=== PATIENT | male | born 1995 | race Caucasian/White ===

== ENCOUNTER 2021-01-14 14:39 | Outpatient (REF) | payer OTHER, SELFPAY ==
--- NOTE | ~2021-01-14 | US_ITS ---
EXAMINATION: US SCROTUM CLINICAL INFORMATION: Epididymitis. COMPARISON: None TECHNIQUE: A sonogram of the scrotum was performed assessing kirby-scale appearance and color Doppler flow. Spectral Doppler analysis of the arterial and venous flow were performed in the testes bilaterally. FINDINGS: RIGHT: Right testicle measures 3.9 x 1.8 x 2.6 cm, volume 9.5 mL. No focal testicular parenchymal lesions are visualized. Spectral Doppler analysis of the arterial and venous flow is normal in the right testis. Right epididymal head is normal in size. No right hydrocele or varicocele is seen. Right epididymal Doppler flow is normal. LEFT: Left testicle measures 3.8 x 1.8 x 2.4 cm, volume 2.6 mL. No focal testicular parenchymal lesions are visualized. Spectral Doppler analysis of the arterial and venous flow is normal in the left testis. Left epididymal head is normal in size. No left hydrocele or varicocele is seen. Left epididymal Doppler flow is normal. US/US scrotum IMPRESSION: Unremarkable study. No significant abnormality demonstrated by ultrasound.
== END 2021-01-14 14:40 | disposition home or self-care (01) ==
LOC: HO.HMGCX 14:39
PROVIDERS: PCP Nurse Practitioner Family; Visit Provider Hospitalist
DX: N45.1 Epididymitis (principal)
CPT/HCPCS: 76870

== ENCOUNTER 2021-06-21 09:28 | Outpatient (REF) | payer OTHER, SELFPAY ==
[2021-06-21 12:19] LABS: Alanine Aminotransferase 16 U/L (0-40); Albumin Level 4.7 g/dL (3.5-5.0); Alkaline Phosphatase 55 U/L (39-117); Anion Gap 10 (12-20); Aspartate Amino Transferase 15 U/L (5-37); Bilirubin Total 0.6 mg/dL (0.0-1.0); Blood Urea Nitrogen 15 mg/dL (9-16); Calcium 9.3 mg/dL (8.4-10.2); Carbon Dioxide 26 mmol/L (22-29); Chloride 106 mmol/L (96-108); Cholesterol 144 mg/dL; Estimated Glomerular Filt Rate > 60; Glucose Fasting 100 mg/dL (60-99); HDL Cholesterol 54 mg/dL; LDL Cholesterol Calculated 84 mg/dl; Potassium 4.3 mmol/L (3.3-5.1); Sodium 138 mmol/L (135-145); Total Protein 7.2 g/dL (6.5-8.0); Triglycerides 34 mg/dL
[2021-06-21 12:41] LABS: TSH reflex Free T4 0.63 uIU/mL (0.32-4.0)
[2021-06-21 14:02] LABS: Appearance Urine CLEAR; Color Urine STRAW; Glucose Urine UA NEG (NEG); Leukocyte Esterase Urine NEG (NEG); Nitrite Urine NEG (NEG); Urine Blood NEG (NEG); Urine Ketones NEG (NEG); Urine Protein NEG (NEG-TRACE)
== END 2021-06-21 09:29 | disposition home or self-care (01) ==
LOC: HO.HMGCLDS 09:28
PROVIDERS: PCP Nurse Practitioner Family; Visit Provider Nurse Practitioner Family
DX: Z00.00 Encounter for general adult medical examination without abnormal findings (principal); Z13.29 Encounter for screening for other suspected endocrine disorder; Z13.220 Encounter for screening for lipoid disorders
CPT/HCPCS: 36415; 80053; 80061; 81003; 84443

== ENCOUNTER 2022-11-20 09:28 | Outpatient (REF) | payer OTHER, SELFPAY ==
--- NOTE | ~2022-11-20 | XR_ITS ---
EXAMINATION: XR ANKLE, LEFT CLINICAL INFORMATION: Pain in the left ankle COMPARISON: None TECHNIQUE: AP, lateral, and mortise views of the left ankle. FINDINGS: The bones and soft tissues are normal. No fracture. Alignment is anatomic. Joint spaces are maintained. No joint effusion. XR/XR ankle LT 2V IMPRESSION: No evidence for acute process
== END 2022-11-20 09:29 | disposition home or self-care (01) ==
LOC: HO.HMGCX 09:28
PROVIDERS: PCP Nurse Practitioner Family; Visit Provider Nurse Practitioner Family
DX: M25.572 Pain in left ankle and joints of left foot (principal)
CPT/HCPCS: 73600

== ENCOUNTER → 2022-12-04 08:54 | Outpatient (BNVA) | payer OTHER, SELFPAY | PROVIDERS: PCP Nurse Practitioner Family; Visit Provider Physician Assistant | DX: Z13.89 Encounter for screening for other disorder (principal) ==

== ENCOUNTER 2023-01-22 11:00 | Outpatient (RCR) | payer OTHER, SELFPAY ==
--- NOTE | 2022-12-22 10:01 | MHC.PT.EP ---
[facility] [place] Office [place] Office [place] Office [address] Myesha Vargas [address] [phone] F: [phone] F: [phone] F: [phone] F: [phone] Physical Therapy Plan of Care Date of Evaluation: Date of Surgery: Diagnosis: pes planus Assessment: 27 y/o male referred to PT with pes planus. He has had L ankle pain for one month of insidious onset resulting in pain with walking, running, jumping which are things he likes to do with his dog. He had an air cast for 2 weeks and now wears a night splint. S/s consistent with achilles tendinopathy secondary to increased pain to palpation midinsertion of achilles tendon, decreased B ankle ROM, decreased ankle/glut strength, decreased toe mobility, B bunions and impaired gait pattern. Recommend PT 1x/every other week for 4 visits (pt has high co-pay). Frequency and Duration: The patient will be seen 1x/every other week for 4 visits Short Term Goals: 4 weeks Compliant with HEP I with self taping Report decrease in pain by 50% with functional activities (pain range 1-8/10) Production Line Technician Goals: 8 weeks I with HEP and self management Improve ankle strength to 5/5 to facilitate walking Pt will be able to play with his dog (jump, jog) with pain < 3/10 Treatment Plan: Modalities to reduce pain, spasms and effusion. Manual therapy to restore motion and function. Therapeutic exercise to improve strength and flexibility. Neuromuscular re-education for posture and balance. Therapeutic activities to return to functional activities of daily living. Electronically signed by: Kate Proctor PT Please sign and return to therapist. Thank you for your referral.
--- NOTE | 2023-02-22 13:39 | MHC.PT.DC ---
[facility] [place] Office [place] Office [place] Office [address] Myesha Vargas [address] [phone] F: [phone] F: [phone] F: [phone] F: [phone] Physical Therapy Discharge Report Diagnosis: pes planus Date of Surgery: Date of Evaluation: 12/22/22 Date of Discharge: 02/22/23 Treatments to Date: 3 Cancellations to Date: 0 No Shows to Date: 0 Discharge Status: Improved Function Independent with HEP Discharge Summary: He reports feeling better overall and feels ready for d/c. He has been doing HEP most days and feels that he has a good understanding of them. He will still have pain with jumping and increased activity, but feels that he can better manage. Reviewed HEP and updated exercises to add more glut strength as well. No further questions Electronically signed by: Kate Proctor PT Please sign and return to therapist. Thank you for your referral.
== END 2023-02-22 13:39 | disposition home or self-care (01) ==
LOC: HO.PTCHIC 11:00
PROVIDERS: PCP Nurse Practitioner Family; Visit Provider Physician Assistant
DX: Q68.8 Other specified congenital musculoskeletal deformities (principal)
CPT/HCPCS: 97110; 97112; 97161

== ENCOUNTER 2023-01-30 08:25 | Outpatient (REF) | payer OTHER, SELFPAY ==
[2023-01-30 11:12] LABS: MANUAL DIFF FLAG NO
[2023-01-30 11:26] LABS: Appearance Urine Clear; Color Urine Yellow; Glucose Urine UA Negative (Negative); Leukocyte Esterase Urine Negative (Negative); Nitrite Urine Negative (Negative); PH 5.5 (5.0-9.0); Urine Blood Negative (Negative); Urine Ketones Negative (Negative); Urine Protein Negative (Neg-Trace)
[2023-01-30 11:36] LABS: Basophils Percent Auto 0.5 % (0-2); Eosinophils Absolute Auto 0.4 X10*3/uL (0.0-0.4); Hematocrit 49.5 % (42.0-52.0); Hemoglobin 16.5 g/dl (14.0-18.0); Imm Gran Abs Auto 0.06 X10*3/uL (0.00-0.03); Lymphocytes Absolute Auto 1.6 X10*3/uL (1.2-4.9); Lymphocytes Percent Auto 25.9 % (20-40); Mean Corpuscular HGB Conc 33.3 g/dl (31.0-36.0); Mean Corpuscular Hemoglobin 30.4 pg (27.0-33.0); Mean Corpuscular Volume 91.2 fL (80.0-98.0); Mean Platelet Volume 9.2 fL (9.4-12.4); Monocytes Absolute Auto 0.5 X10*3/uL (0.1-1.2); Monocytes Percent Auto 8.1 % (2-11); Neutrophils Absolute Auto 3.6 x10*3/uL (2.0-8.3); Neutrophils Percent Auto 58.5 % (45-73); Platelet Count 244 X10*3/uL (160-400); Red Blood Count 5.43 X10*6/uL (4.60-5.80); Red Cell Distribution Width 12.3 % (11.0-16.0); White Blood Count 6.2 X10*3/uL (4.8-10.8)
[2023-01-30 11:59] LABS: Alanine Aminotransferase 23 U/L (0-40); Albumin Level 4.3 g/dL (3.5-5.0); Alkaline Phosphatase 69 U/L (39-117); Anion Gap 14 (12-20); Aspartate Amino Transferase 19 U/L (5-37); Bilirubin Total 0.6 mg/dL (0.0-1.0); Blood Urea Nitrogen 14 mg/dL (9-16); Calcium 9.7 mg/dL (8.4-10.2); Carbon Dioxide 23 mmol/L (22-29); Chloride 106 mmol/L (96-108); Cholesterol 146 mg/dL; Estimated Glomerular Filt Rate > 60; Glucose Fasting 100 mg/dL (60-99); HDL Cholesterol 40 mg/dL; LDL Cholesterol Calculated 94 mg/dl; Potassium 4.9 mmol/L (3.3-5.1); Sodium 138 mmol/L (135-145); Total Protein 6.7 g/dL (6.5-8.0); Triglycerides 64 mg/dL
[2023-01-30 12:17] LABS: TSH reflex Free T4 0.94 uIU/mL (0.32-4.0)
== END 2023-01-30 08:26 | disposition home or self-care (01) ==
LOC: HO.HMGCLDS 08:25
PROVIDERS: PCP Nurse Practitioner Family; Visit Provider Nurse Practitioner Family
DX: Z00.00 Encounter for general adult medical examination without abnormal findings (principal); F41.1 Generalized anxiety disorder
CPT/HCPCS: 36415; 80053; 80061; 81003; 84443; 85025

== ENCOUNTER 2024-01-28 13:24 | Outpatient (AMB) | payer OTHER, SELFPAY ==
--- NOTE | 2024-01-28 13:47 | A.OFFPC_ITS ---
Vital Signs 01/28/24 13:50 Weight 189 lb BP 118/64 Blood Pressure Location Rt brachial Position Sitting Pulse 70 Pulse Source Pulse Oximeter Pulse Oximetry (%) 99 Oxygen Delivery Method Room Air Intake Visit Reasons: Annual PE Intake Note: Patient here for physical exam. Allergies No Known Allergies Allergy (Verified 01/28/24 15:16) Medication List - Last Reconciled 01/28/24 by CARO Pittman ketoconazole 2% 1 appl topical DAILY Tobacco use date assessed: 01/28/24 Dental Screening Dental Screen Date: 01/28/24 Did you have a dental visit in the last 12 months?: Yes Did you have a dental problem in the last 6 months where you did not have access to dental care?: No Was dental information given to patient?: Patient has dentist HPI Annual PE HPI Details Pt is here for a PE. Will order labs. [facility] Social History Housing: House Patient Tobacco Use Status: Never used Tobacco e-Cigarette/Vaping Use: Former Use Second Hand Smoke Exposure: Yes service: No Current occupational status: employed Current occupation: [employer] Current occupational exposures/hazards: No Cognitive needs: No Hearing needs: No Vision needs: No Questionnaire PHQ-9 Over the last 2 weeks, how often have you been bothered by any of the following problems? 1. Little interest or pleasure in doing things: not at all 2. Feeling down, depressed, or hopeless: several days 3. Trouble falling or staying asleep, or sleeping too much: not at all 4. Feeling tired or having little energy: several days 5. Poor appetite or overeating: not at all 6. Feeling bad about yourself - or that you are a failure or have let yourself or your family down: more than half the days 7. Trouble concentrating on things, such as reading the newspaper or watching television: not at all 8. Moving or speaking so slowly that other people could have noticed. Or the opposite - being so fidgety or restless that you have been moving around a lot more than usual: not at all 9. Thoughts that you would be better off or of hurting yourself in some way : several days Total score: 5 Depression Screening Interpretation: Positive Depression Screening Done: Yes 59971 - PHQ-9 Billing: Yes Source: Developed by Drs. Jacques Stuart, Azalia Rosales, Jaleel Stokes and colleagues, with an educational yana from [employer]. Thrive Questionnaire Date Thrive assessed: 01/28/24 I am a: Patient What is your living situation today?: I have a steady place to live Within the past 12 months, did the food you bought not last and you didn't have the money to get more?: Never true Within the past 12 months, did you worry whether your food would run out before you got money to buy more?: Never true Do you have trouble paying for medicines?: No Do you have trouble getting transportation to medical appointments?: No Do you have trouble paying your heating and electricity bill?: No Do you have trouble taking care of your child, family member or friend?: No Do you have trouble with day-to-day activities such as bathing, preparing meals, shopping, managing finances, etc.?: No Are you currently unemployed and looking for a job?: No Are you interested in more education?: No Currently or been in a relationship where the following occur: I choose not to answer this question THRIVE Score: 0 AUDIT C Alcohol Use Questionnaire (AUDIT-C) 1. How often do you have a drink containing alcohol?: Monthly or less 2. How many drinks containing alcohol do you have on a typical day when you are drinking?: 1 or 2 3. How often do you have six or more drinks on one occasion?: Never Total Score: 1 Score Reviewed/Action Taken: No ROSAI SELA-7 AMB Questionnaire ROSA ISELA-7 Date ROSA ISELA - 7 assessed: 01/28/24 Feeling nervous, anxious, or on edge: 1 = Several days Not being able to stop or control worryin = Several days Worrying too much about different things: 0 = Not at all Trouble relaxin = Not at all Being so restless that it is hard to sit still: 0 = Not at all Becoming easily annoyed or irritable: 1 = Several days Feeling afraid as if something awful might happen: 1 = Several days Total ROSA ISELA-7 score (0-4 normal; 5-9 mild; 10-14 moderate; 15-21 severe): 4 Source: Developed by Drs. Jacques Stuart, Azalia Rosales, Jaleel Stokes and colleagues, with an educational yana from [employer]. ROSA ISELA-7 Assessment Billing ROSA ISELA-7 Assessment Tool: ROSA ISELA-7 Assessment 10728 Review of Systems Const Denies chills and Denies fever(s) Eyes Denies blurry vision ENT Denies vertigo, Denies dizziness and Denies sore throat Card Denies chest pain at rest, Denies chest pain with activity, Denies diaphoresis, Denies dyspnea and Denies dyspnea on exertion Resp Denies cough, Denies dyspnea, Denies dyspnea on exertion and Denies wheezing GI Denies abdominal pain, Denies melena, Denies hematochezia, Denies constipation, Denies diarrhea and Denies loose stools Denies hematuria Musc Denies numbness and Denies tingling Skin/Breast Denies lesions Neuro Denies vertigo, Denies dizziness, Denies numbness and Denies tingling Psych Denies anxiety, Denies depression, Denies homicidal ideation, Denies suicidal ideation and Denies other (substance abuse) Aller/Immun Denies wheezing Physical exam (Primary Care) Vital Signs: Last Vital Signs Pulse 70 01/28/24 13:50 BP 118/64 01/28/24 13:50 Pulse Ox 99 01/28/24 13:50 Oxygen Delivery Method Room Air 01/28/24 13:50 Tobacco/Smoking Status: Tobacco use Status Tobacco use date assessed 01/28/24 01/28/24 13:52 Patient Tobacco Use Status Never used Tobacco 01/28/24 13:47 e-Cigarette/Vaping Use Former Use 01/28/24 13:47 PHQ-9: PHQ-9 Score PHQ-9: Total score 5 01/28/24 14:12 Depression Screening Interpretation: Positive Thrive Assessment: Date of Thrive Assessment Date Thrive assessed 01/28/24 01/28/24 14:12 Currently or been in a relationship where the following occur: I choose not to answer this question Const General: cooperative Nutritional Appearance: well nourished Orientation/consciousness: patient oriented x3 HENMT Head: Yes normal to inspection, Yes normocephalic and Yes atraumatic Ears: TM's normal bilaterally Eyes General: appearance normal, both eyes and all related structures Alignment and Position: alignment normal and position normal Neck Neck: Yes normal visual inspection and Yes no lymphadenopathy Thyroid: Thyroid normal Resp Effort & Inspection: normal respiratory effort Auscultation: clear to auscultation bilaterally Cardio Rate: regular rate Rhythm: regular rhythm Heart sounds: S1 normal heart sound present, S2 normal heart sound present and no murmurs GI Palpation (GI): Soft to palpation and nontender Auscultation: normal bowel sounds Male General Exam: Yes normal external exam Penis: normal penis Scrotum: scrotum normal, testes descended bilaterally and no inguinal hernias Testes: no testicular mass Skin Rashes: no rashes Neuro General: patient oriented x3, moves all extremities, no focal motor deficits and deep tendon reflexes 2+ bilaterally Romberg Test: Negative Psych Appearance: grossly normal Mental Status: mental status grossly normal Speech and movement: Normal speech and movement present Affect: normal affect Attitude: cooperative Thought process: Normal thought process present Thought content: Normal thought content present Insight: Good insight present (Psych) Judgement: Good judgement present (Psych) Assessment and Plan Assessment & Plan (1) Physical exam: Code(s): Z00.00 - Encounter for general adult medical examination without abnormal findings Plan: Labs ordered Plan The patient agreed to the use of a medical records administrator for this encounter. Scribed for CARO Wilkinson by Teri Graham medical records administrator, on 01/28/2024 at 14:00 EST. Orders: Orders TSH reflex Free T4 Today Z00.00 - Encounter for general adult medical examination without abnormal findings UA CC w/rflx Micro + Cult Today Z00.00 - Encounter for general adult medical examination without abnormal findings Complete Blood Count Auto Diff Today Z00.00 - Encounter for general adult medical examination without abnormal findings Comprehensive [place]. Panel Fast Today Z00.00 - Encounter for general adult medical examination without abnormal findings Lipid Panel Today Z00.00 - Encounter for general adult medical examination without abnormal findings Medications: New ketoconazole 2% 1 appl topical DAILY 60 grams 0RF Coding Level of Care Code Est Pt Prev Care 18-39y(88776) Diagnoses Physical exam Z00.00 Additional Codes ROSA ISELA-7 Assessment Billing - ROSA ISELA-7 Assessment Tool: ROSA ISELA-7 Assessment 11850 ([id number])
[2024-01-28 13:50] VITALS: BP 118/64; PULSE 70; O2SAT 99
== END 2024-01-28 14:08 | disposition home or self-care (01) ==
PROVIDERS: Visit Provider Nurse Practitioner Family
DX: Z00.00 Encounter for general adult medical examination without abnormal findings (principal)
CPT/HCPCS: 99395

== ENCOUNTER 2024-02-19 06:37 | Outpatient (REF) | payer OTHER, SELFPAY ==
[2024-02-19 10:19] LABS: MANUAL DIFF FLAG NO
[2024-02-19 10:46] LABS: Basophils Percent Auto 0.6 % (0-2); Eosinophils Absolute Auto 0.3 X10*3/uL (0.0-0.4); Eosinophils Percent Auto 5.6 % (0-4); Hematocrit 45.5 % (42.0-52.0); Hemoglobin 15.4 g/dl (14.0-18.0); Imm Gran Abs Auto 0.01 X10*3/uL (0.00-0.03); Imm Gran Pct Auto 0.2 % (0.0-0.4); Lymphocytes Absolute Auto 1.2 X10*3/uL (1.2-4.9); Lymphocytes Percent Auto 23.7 % (20-40); Mean Corpuscular HGB Conc 33.8 g/dl (31.0-36.0); Mean Corpuscular Hemoglobin 30.5 pg (27.0-33.0); Mean Corpuscular Volume 90.1 fL (80.0-98.0); Mean Platelet Volume 9.4 fL (9.4-12.4); Monocytes Absolute Auto 0.4 X10*3/uL (0.1-1.2); Monocytes Percent Auto 8.5 % (2-11); Neutrophils Absolute Auto 3.2 x10*3/uL (2.0-8.3); Neutrophils Percent Auto 61.4 % (45-73); Platelet Count 242 X10*3/uL (160-400); Red Blood Count 5.05 X10*6/uL (4.60-5.80); Red Cell Distribution Width 11.9 % (11.0-16.0); White Blood Count 5.2 X10*3/uL (4.8-10.8)
[2024-02-19 11:24] LABS: Alanine Aminotransferase 14 U/L (0-40); Albumin Level 4.4 g/dL (3.5-5.0); Alkaline Phosphatase 57 U/L (39-117); Anion Gap 13 (12-20); Aspartate Amino Transferase 16 U/L (5-37); Bilirubin Total 1.2 mg/dL (0.0-1.0); Blood Urea Nitrogen 16 mg/dL (9-16); Calcium 9.7 mg/dL (8.4-10.2); Carbon Dioxide 21 mmol/L (22-29); Chloride 109 mmol/L (96-108); Cholesterol 138 mg/dL (<200); Estimated Glomerular Filt Rate > 60; Glucose Fasting 96 mg/dL (60-99); HDL Cholesterol 37 mg/dL (>40); LDL Cholesterol Calculated 89 mg/dL (<100); Potassium 3.8 mmol/L (3.3-5.1); Sodium 139 mmol/L (135-145); TSH reflex Free T4 0.54 uIU/mL (0.32-4.0); Total Protein 6.8 g/dL (6.5-8.0); Triglycerides 61 mg/dL (<150)
[2024-02-19 13:34] LABS: Appearance Urine Turbid; Color Urine Dark Yellow; Glucose Urine UA Negative (Negative); Leukocyte Esterase Urine Negative (Negative); Nitrite Urine Negative (Negative); PH 5.5 (5.0-9.0); Specific Gravity - Urine >= 1.030 (1.005-1.025); Urine Blood Negative (Negative); Urine Ketones Trace mg/dL (Negative); Urine Protein Trace mg/dL (Neg-Trace)
== END 2024-02-19 06:38 | disposition home or self-care (01) ==
LOC: HO.HMGCLDS 06:37
PROVIDERS: PCP Nurse Practitioner Family; Visit Provider Nurse Practitioner Family
DX: Z00.00 Encounter for general adult medical examination without abnormal findings (principal); Z13.6 Encounter for screening for cardiovascular disorders
CPT/HCPCS: 36415; 80053; 80061; 81003; 84443; 85025

== ENCOUNTER 2025-07-23 15:28 | Outpatient (AMB) | payer OTHER, SELFPAY ==
[2025-07-23 15:55] VITALS: BP 106/74; PULSE 100; TEMP 36.6; O2SAT 98; BMI 25.8
--- NOTE | 2025-07-23 15:55 | MHC.OFFWIV ---
Intake Vital Signs 07/23/25 15:55 Height 5 ft 9 in Weight 175 lb BMI 25.8 BP 106/74 Blood Pressure Location Rt brachial Position Sitting Pulse 100 Pulse Source Pulse Oximeter Temp 97.9 F Temp Source Oral Pulse Oximetry (%) 98 Oxygen Delivery Method Room Air Intake Visit Reasons: EP Left eye irritation Intake Note: pt presents with LT eye redness noticed today after work Patient Tobacco Use Status: Never used Tobacco Allergies No Known Allergies Allergy (Verified 07/23/25 15:59) Do you need a note to return to daycare/school/sports/work: Yes HPI HPI Comments History of Present Illness Details History of Present Illness - The patient is a 30-year-old male presenting with left eye redness. - The patient noticed the redness in the left eye after returning home from work, with no recollection of any specific incident causing it. - The patient works as a any commodity buyer and occasionally uses the wrist part of gloves to rub the eye, which may have caused irritation. - There is no associated pain, itching, or discharge, and the patient denies any significant trauma or exposure to irritants. - The patient has a history of coughing the previous day, but no direct correlation to the eye condition was established. - The patient has no blurry vision, double vision, discharge, cold symptoms or allergies. - He denies FB in the eye. Physical Exam General: Cooperative, healthy appearing, comfortable, no acute distress and well developed Orientation: Patient oriented x3 Limitations: No limitations Head: Normal to inspection Eyes: Appearance shows slight swelling and light pink area noted on the medial aspect on the left. Pupil is 3mm. PERRLA, EOMI. No crusting or tearing noted. Respiratory: Normal respiratory effort and able to speak in complete sentences. Clear to auscultation bilaterally. No w/r/r noted. Cardiovascular: Regular rate and rhythm. Normal S1 and S2. No m/r/g noted. Patient was informed and verbally consented to the use of an ambient scribe for clinic note documentation during this visit. [facility] Social History Housing: House Patient Tobacco Use Status: Never used Tobacco e-Cigarette/Vaping Use: Former Use Second Hand Smoke Exposure: Yes service: No Current occupational status: employed Current occupation: [employer] Current occupational exposures/hazards: No Cognitive needs: No Hearing needs: No Vision needs: No Review of Systems Const All systems reviewed & are unremarkable except as noted in HPI and below Physical Exam Vital Signs: Last Vital Signs Temp 97.9 F 07/23/25 15:55 Pulse 100 07/23/25 15:55 BP 106/74 07/23/25 15:55 Pulse Ox 98 07/23/25 15:55 Oxygen Delivery Method Room Air 07/23/25 15:55 BMI result Body Mass Index 25.8 Assessment & Plan Assessment & Plan (1) Irritation of left eye: Code(s): H57.89 - Other specified disorders of eye and adnexa Plan Most likely Eye Irritation Due To Rubbing vs subconjunctival hemorrhage vs chemosis plan - The patient was advised to monitor the condition and avoid rubbing the eye. - Eye drops were prescribed to be picked up if symptoms worsen or if the entire eye becomes red. - The patient was reassured that the condition is likely due to minor trauma and should resolve on its own. - Advised to seek further evaluation if symptoms persist or worsen. Medications: New polymyxin B sulf-trimethoprim 10,000 unit- 1 mg/mL while awake 1 drp ophthalmic-Right QID 10 mL 0RF 5 days Coding Level of Care Code Est Pt Level 3 (37684) Diagnoses Irritation of left eye H57.89
--- OUTSIDE RECORDS SUMMARY | 2025-07-23 18:24 | XMS_ITS | Encounter Summary ---
Author Organization [facility] Address [address] [place] [address] Phone Care Team Providers Care Reporting Specialist Name Role Phone Giuseppe Hines MD Primary Care Provider Ema snyder Encounter Details Date Type Department Care Team (Late st Contact Info) Description 08/20/2012 Documentation [facility] [place] Family Medicine [address] [place], [place] [id number] Family Medicine, Physician [address] [place] [address] Social History Tobacco Use Types Packs/Day Years Used Date Smoking Tobacco: Never Assessed Sex and Gender Information Value Date Recorded Sex Assigned at Not on file Legal Sex Male 4:55 PM EDT Gender Identity Not on file Sexual Orientation Not on file documented as of this encounter Plan of Treatment Not on file documented as of this encounter Visit Diagnoses Not on filedocumented in this encounter Care Teams Reporting Specialist Relationship Specialty Start Date End Date Giuseppe Hines MD PCP - General 04/27/17 11/07/22 documented as of this encounter
--- OUTSIDE RECORDS SUMMARY | 2025-07-23 18:24 | XMS_ITS | Encounter Summary ---
Author Organization [facility] Address [address] [place] [address] Phone Care Team Providers Care Sales Representative Adding Machines Name Role Phone Giuseppe Hines MD Primary Care Provider Ema snyder Encounter Details Date Type Department Care Team (Late st Contact Info) Description 05/17/2011 Documentation [facility] [place] [address] [place], [place] [phone] Family Medicine, Physician [address] [place] [address] Social History Tobacco Use Types Packs/Day Years [...] on filedocumented in this encounter Care Teams Sales Representative Adding Machines Relationship Specialty Start Date End Date Giuseppe Hines MD PCP - General 04/27/17 11/07/22 documented as of this encounter
--- OUTSIDE RECORDS SUMMARY | 2025-07-23 18:24 | XMS_ITS | Encounter Summary ---
Author Organization [facility] Address [address] [place] [address] Phone Care Team Providers Care Director Marketing Name Role Phone Giuseppe Hinse MD Primary Care Provider Ema snyder Encounter Details Date Type Department Care Team (Late st Contact Info) Description 08/28/2013 Documentation [facility] Family Medicine [address] [place], [place] [phone] Family Medicine, Physician [address] [place] [address] Social History Tobacco Use Types Packs/Day Years [...] on filedocumented in this encounter Care Teams Director Marketing Relationship Specialty Start Date End Date Giuseppe Hines MD PCP - General 04/27/17 11/07/22 documented as of this encounter
--- OUTSIDE RECORDS SUMMARY | 2025-07-23 18:24 | XMS_ITS | Encounter Summary ---
Author Organization [facility] Address [address] [place] [address] Phone Care Team Providers Care Senior Training Specialist Name Role Phone Giuseppe Hines MD Primary Care Provider Ema snyder Encounter Details Date Type Department Care Team (Late st Contact Info) Description 08/20/2012 Documentation [facility] [place] Family Medicine [address] [place], [place] [phone] Family Medicine, Physician [address] [place] [address] Social History Tobacco Use Types Packs/Day Years [...] on filedocumented in this encounter Care Teams Senior Training Specialist Relationship Specialty Start Date End Date Giuseppe Hines MD PCP - General 04/27/17 11/07/22 documented as of this encounter
--- OUTSIDE RECORDS SUMMARY | 2025-07-23 18:24 | XMS_ITS | Encounter Summary ---
Author Organization [facility] Address [address] [place] [address] Phone Care Team Providers Care Internal Medicine Specialist Name Role Phone Giuseppe Hines MD Primary Care Provider Ema snyder Encounter Details Date Type Department Care Team (Late st Contact Info) Description 05/17/2011 Documentation [facility] [place] Family Medicine [address] [place], [place] [phone] Family Medicine, Physician [address] [place] [address] Social History Tobacco Use Types Packs/Day Years [...] on filedocumented in this encounter Care Teams Internal Medicine Specialist Relationship Specialty Start Date End Date Giuseppe Hines MD PCP - General 04/27/17 11/07/22 documented as of this encounter
--- OUTSIDE RECORDS SUMMARY | 2025-07-23 18:24 | XMS_ITS | Encounter Summary ---
Author Organization [facility] Address [address] [place] [address] Phone Care Team Providers Care Owner Consulting Engineer Name Role Phone Giuseppe Hines MD Primary Care Provider Ema snyder Encounter Details Date Type Department Care Team (Late st Contact Info) Description 09/14/2014 Documentation [facility] [place] Family Medicine [address] [place], [place] [phone] Family Medicine, Physician [address] [place] [address] Social History Tobacco Use Types Packs/Day Years Used Date Smoking Tobacco: Never Comments:Never smoker Sex and Gender Information Value Date Recorded Sex Assigned at Not on file Legal Sex Male 4:55 PM EDT Gender Identity Not on file Sexual Orientation Not on file documented as of this encounter Plan of Treatment Not on file documented as of this encounter Visit Diagnoses Not on filedocumented in this encounter Care Teams Owner Consulting Engineer Relationship Specialty Start Date End Date Giuseppe Hines MD PCP - General 04/27/17 11/07/22 documented as of this encounter
--- OUTSIDE RECORDS SUMMARY | 2025-07-23 18:24 | XMS_ITS | Clinical Summary ---
Author Organization [facility] Address [address] [place] [id number] Phone Care Team Providers Care Renal Technician Name Role Phone Unavailable Primary Care Provider Unavailabl e Immunizations Immunization Administration Dates Next Due DTP 08/10/1997, 6,1996, 996 DTaP 5 2001 H1N1 08/17/2009 HPV, Quadrivalent 09/11/2014 Hep A, ped/adol 09/11/2014 Hep B, ped/adol 1996,1996,1996 Hib (PRP-T) 05/14/1997, 6,1996, 996 IPV 2001,1996 Influenza Split 05/16/2011 Influenza, intranasal, quadrivalent 09/11/2014 Influenza, intranasal, trivalent 08/19/2012 MMR 02/10/2000,02/10/1997 Meningococcal Conj (Menactra) MCV4P 04/16/2008 OPV 1996,1996 Tdap 04/16/2008 Varicella 04/16/2008,02/10/2000 Family History Relation Name Status Comments Brother Alive Brother: Alive and well Father Alive Father: Diabete s mellitus type 2, Hyperlipidemia, Hypertension Maternal Grandfather Materna l grandfather: , Coronary artery disease, premature Mother Alive Mother: Alive a nd well Paternal Grandfather Paterna l grandfather: , Diabetes mellitus Paternal Grandmother Paterna l grandmother: Diabetes mellitus Social History Tobacco Use Types Packs/Day Years Used Date Smoking Tobacco: Never Comments:Never smoker Sex and Gender Information Value Date Recorded Sex Assigned at Not on file Legal Sex Male 4:55 PM EDT Gender Identity Not on file Sexual Orientation Not on file Last Filed Vital Signs Vital Sign Reading Time Taken Comments Blood Pressure 106/66 09/11/2014 12:00 AM EST Pulse 62 09/11/2014 12:00 AM EST Temperature 36.2 C (97.1 F) 08/26/2013 12:00 AM EST Respiratory Rate - - Oxygen Saturation - - Inhaled Oxygen Concentration - - Weight 74.2 kg (163 lb 9.6 oz) 09/11/2014 12:00 AM EST Height 169.9 cm (5' 6.9 ) 09/11/2014 12:00 AM ES T Body Mass Index 25.7 09/11/2014 12:00 AM EST Plan of Treatment Health Maintenance Due Date Last Done Comments HPV Vaccines (2 - Male 3-dose series) 10/09/2014 09/11/2014 Hepatitis A Vaccines (2 of 2 - 2-dose series) 03/12/2015 09/11/2014 DTaP,Tdap,and Td Vaccines (7 - Td or Tdap) 04/16/2018 04/16/2008, 2001, 08/10/1997, Additional history exists Influenza Vaccines (#1) 2025 09/11/20 14, 08/19/2012, 05/16/2011 COVID-19 Vaccine ( season) 2025 Hepatitis B Vaccines Completed 1996, 1996, 1996 HIB Vaccines Completed 05/14/1997, 08/17, 1996, Additional history exists MMR Vaccines Completed 02/10/2000, 02/10/1997 IPV Vaccines Completed 2001, 08/17, 1996, Additional history exists Meningococcal Vaccine Aged Out 04/16/2008 No ramirez antwon eligible based on patient's age to complete this topic Varicella Vaccines Completed 04/16/2008, 02/10/2000 Men B Vaccine Aged Out No longer elig ible based on patient's age to complete this topic Pneumococcal Vaccine Aged Out No long er eligible based on patient's age to complete this topic
--- OUTSIDE RECORDS SUMMARY | 2025-07-23 18:24 | XMS_ITS | Encounter Summary ---
Author Organization [facility] Address [address] [place] [address] Phone Care Team Providers Care Photographic Aide Name Role Phone Giuseppe Hines MD Primary Care Provider Ema snyder Encounter Details Date Type Department Care Team (Late st Contact Info) Description 04/27/2011 Documentation [facility] [place] Family Medicine [address] [place], [place] [phone] Family Medicine, Physician [address] [place] [address] Social History Tobacco Use Types Packs/Day Years [...] on filedocumented in this encounter Care Teams Photographic Aide Relationship Specialty Start Date End Date Giuseppe Hines MD PCP - General 04/27/17 11/07/22 documented as of this encounter
--- OUTSIDE RECORDS SUMMARY | 2025-07-23 18:24 | XMS_ITS | Encounter Summary ---
Author Organization [facility] Address [address] [place] [address] Phone Care Team Providers Care Completions Engineer Name Role Phone Giuseppe Hines MD Primary Care Provider Ema snyder Encounter Details Date Type Department Care Team (Late st Contact Info) Description 08/28/2013 Documentation [facility] [place] Family Medicine [address] [place], [place] [phone] Family Medicine, Physician [address] [place] [address] Social History Tobacco Use Types Packs/Day Years [...] on filedocumented in this encounter Care Teams Completions Engineer Relationship Specialty Start Date End Date Giuseppe Hines MD PCP - General 04/27/17 11/07/22 documented as of this encounter
--- OUTSIDE RECORDS SUMMARY | 2025-07-23 18:24 | XMS_ITS | Encounter Summary ---
Author Organization [facility] Address [address] [place] [address] Phone Care Team Providers Care Installation & Maintenance Executive Name Role Phone Giuseppe Hines MD Primary Care Provider Ema snyder Encounter Details Date Type Department Care Team (Late st Contact Info) Description 05/03/2017 Conversion Encounter [facility] - [address] [address] Social History Tobacco Use Types Packs/Day Years [...] on filedocumented in this encounter Care Teams Installation & Maintenance Executive Relationship Specialty Start Date End Date Giuseppe Hines MD PCP - General 04/27/17 11/07/22 documented as of this encounter
--- OUTSIDE RECORDS SUMMARY | 2025-07-23 18:24 | XMS_ITS | Encounter Summary ---
Author Organization [facility] Address [address] [place] [address] Phone Care Team Providers Care Director Post Name Role Phone Giuseppe Hines MD Primary Care Provider Ema snyder Encounter Details Date Type Department Care Team (Late st Contact Info) Description 09/14/2014 Documentation [facility] [place] Family Medicine [address] [place], [place] [phone] Family Medicine, Physician [address] [place] [address] Social History Tobacco Use Types Packs/Day Years [...] filedocumented in this encounter Care Teams Director Post Relationship Specialty Start Date End Date Giuseppe Hines MD PCP - General 04/27/17 11/07/22 documented as of this encounter
--- OUTSIDE RECORDS SUMMARY | 2025-07-23 18:24 | XMS_ITS | Encounter Summary ---
Author Organization [facility] Address [address] [place] [address] Phone Care Team Providers Care Instrument Checker Name Role Phone Giuseppe Hines MD Primary Care Provider Ema snyder Encounter Details Date Type Department Care Team (Late st Contact Info) Description 08/20/2012 Documentation [facility] [place] Family Medicine [address] [place], [place] [phone] Family Medicine, Physician [address] [place] [address] Social History Tobacco Use Types Packs/Day Years [...] on filedocumented in this encounter Care Teams Instrument Checker Relationship Specialty Start Date End Date Giuseppe Hines MD PCP - General 04/27/17 11/07/22 documented as of this encounter
--- OUTSIDE RECORDS SUMMARY | 2025-07-23 18:24 | XMS_ITS | Encounter Summary ---
Author Organization [facility] Address [address] [place] [address] Phone Care Team Providers Care Size Maker Name Role Phone Giuseppe Hines MD Primary Care Provider Ema snyder Encounter Details Date Type Department Care Team (Late st Contact Info) Description 09/14/2014 [place] [facility] [place] [address] [place], [place] [phone] Family Medicine, Physician [address] [place] [address] Social History Tobacco Use Types Packs/Day Years [...] on filedocumented in this encounter Care Teams Size Maker Relationship Specialty Start Date End Date Giuseppe Hines MD PCP - General 04/27/17 11/07/22 documented as of this encounter
--- OUTSIDE RECORDS SUMMARY | 2025-07-23 18:24 | XMS_ITS | Encounter Summary ---
Author Organization [facility] Address [address] [place] [address] Phone Care Team Providers Care Counter Installer Name Role Phone Giuseppe Hines MD Primary Care Provider Ema snyder Encounter Details Date Type Department Care Team (Late st Contact Info) Description 09/14/2014 Documentation [facility] [place] Family Medicine [address] [place], [place] [phone] Family Medicine, Physician [address] [place] [address] Social History Tobacco Use Types Packs/Day Years [...] on filedocumented in this encounter Care Teams Counter Installer Relationship Specialty Start Date End Date Giuseppe Hines MD PCP - General 04/27/17 11/07/22 documented as of this encounter
--- OUTSIDE RECORDS SUMMARY | 2025-07-23 18:24 | XMS_ITS | Encounter Summary ---
Author Organization [facility] Address [address] [place] [address] Phone Care Team Providers Care Software Build Engineer Name Role Phone Giuseppe Hines MD Primary Care Provider Ema snyder Encounter Details Date Type Department Care Team (Late st Contact Info) Description 08/20/2012 Documentation [facility] [place] Family Medicine [address] [place], [place] [phone] Family Medicine, Physician [address] [place] [address] Social History Tobacco Use Types Packs/Day Years [...] on filedocumented in this encounter Care Teams Software Build Engineer Relationship Specialty Start Date End Date Giuseppe Hines MD PCP - General 04/27/17 11/07/22 documented as of this encounter
== END 2025-07-23 16:34 | disposition home or self-care (01) ==
PROVIDERS: PCP Nurse Practitioner Family; Visit Provider Physician Assistant Medical
DX: H57.89 Other specified disorders of eye and adnexa (principal)